=== PATIENT | female | born 1950 | race Caucasian/White ===

== ENCOUNTER 2016-10-13 14:04 | Emergency (ER) | payer MEDICARE ==
[~2016-10-13] VITALS: Ht 167.6 cm; Wt 59.0 kg
[2016-10-13] MEDS: Ketorolac 30mg Inj IV ONE ×2 (14:45→14:56)
[2016-10-13 14:51] LABS: BASOPHILS % (AUTO) 0.7 % (0.0-2.0); LYMPHOCYTES % (AUTO) 30.1 % (20.0-45.0); MEAN CORPUSCULAR HEMOGLOBIN 30.7 PG (27.0-31.0); MEAN CORPUSCULAR HGB CONC 33.3 G/DL (32.0-36.0); MEAN CORPUSCULAR VOLUME 92 FL (80-99); MEAN PLATELET VOLUME 5.1 FL (6.5-10.1); MONOCYTES % (AUTO) 10.1 % (1.0-10.0); NEUTROPHILS % (AUTO) 58.2 % (45.0-75.0); PLATELET COUNT 337 K/UL (150-450); RED BLOOD COUNT 4.83 M/UL (4.20-5.40); RED CELL DISTRIBUTION WIDTH 11.6 % (11.6-14.8); WHITE BLOOD COUNT 7.4 K/UL (4.8-10.8)
--- NOTE | 2016-10-13 14:52 | Emergency Room Report ---
History of Present Illness General Chief Complaint: General Complaint Source: Patient Present Illness HPI [id number] with 8 hours of left jaw tightness, nausea, dizziness; jaw pain progressively improving with speaking, "Stretching" it, associated with pain down left arm and right lower back pain. Also associated with acid/burning mid-sternum. Took Prevacid last night. History of GERD. All symptoms started upon waking at 8am, 7 hours prior to ED arrival. No assoc chest pain, SOB, fever/chills, urinary complaints. Denies recent heavy lifting, back strain. History of lower back "disc problems. " History of previous TIAs - states this doesnt feel like "my TIAs." Is on ASA s/p TIA Has had "many MRIs" but was "never told results." Has Neurologist. Patient came by EMS from doctor's office. 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 Pertinent Family History: none Social History: Denies: alcohol use, drug use, smoking Now: No Immunizations: UTD Reviewed Nursing Documentation: PMH: Agreed, PSxH: Agreed Nursing Documentation-PMH Hx Cardiac Problems: No Hx Pacemaker: No Hx Asthma: No Hx COPD: No Review of Systems All Other Systems: negative except mentioned in HPI Physical Exam Vital Signs Date Time Temp Pulse Resp B/P Pulse Ox O2 Delivery O2 Flow Rate FiO2 10/13/16 14:02 97.9 78 16 130/80 99 Room Air Sp02 EP Interpretation: reviewed, normal General Appearance: normal inspection, well appearing, no apparent distress, alert, GCS 15, non-toxic Head: normocephalic, atraumatic Eyes: bilateral eye EOMI, bilateral eye PERRL ENT: normal ENT inspection, hearing grossly normal, normal voice Neck: normal inspection, full range of motion, supple, no bony tend Respiratory: normal inspection, lungs clear, normal breath sounds, no respiratory distress, no retraction, no wheezing Cardiovascular #1: regular rate, rhythm, no edema Gastrointestinal: normal inspection, normal bowel sounds, non tender, soft, no guarding, no hernia Genitourinary: normal inspection, CVA tenderness (R) Musculoskeletal: normal inspection, back normal, normal range of motion, Kirk' s Sign negative Neurologic: normal inspection, alert, oriented x3, responsive, sky line yarder III-XII nml as tested, motor strength/tone normal, normal gait, speech normal Psychiatric: normal inspection, judgement/insight normal, mood/affect normal Skin: normal inspection, normal color, no rash Medical Decision Making Diagnostic Impression: Primary Impression: Jaw pain Additional Impression: Right low back pain Qualified Codes: M54.5 - Low back pain ER Course Jaw pain, dyspepsia - VSS. Afebrile. - Likely GERD - ECG shows TWI from PMD office and also from here. No ischemia - Troponin 0. - UA negative for UTI/pyelo so unlikely cause of right flank pain - At this time, 7 hours after onset, unlikely ACS with 1 negative troponin - Patient refused IV Toradol, PO Valium for right back pain, left jaw tightness - Was given IV pepcid with improvement in symptoms - Given history of low back pain/diskectomy, pain worse with movement, pain started in morning, likely MSK in nature. DC with PMD followup Given copy of labs for PMD followup DC home EKG Diagnostic Results Rate: normal Rhythm: NSR ST Segments: other - TWI in V1-3, Lead 3 ASA given to the pt in ED: No - Took earlier Rhythm Strip Diag. Results EP Interpretation: yes Rate: 85 Rhythm: NSR, no PVC's, no ectopy Chest X-Ray Diagnostic Results Chest X-Ray Diagnostic Results : Chest X-Ray Ordered: Yes # of Views/Limited/Complete: 1 View Indication: Chest Pain EP Interpretation: Yes Interpretation: no consolidation, no effusion, no pneumothorax, no acute cardiopulmonary disease Impression: No acute disease Interpreting ER Provider: Eelctronically signed by Dr Rouse Last Vital Signs Date Time Temp Pulse Resp B/P Pulse Ox O2 Delivery O2 Flow Rate FiO2 10/13/16 14:02 97.9 78 16 130/80 99 Room Air Status: improved PATRIZIA ROUSE M.D. Oct 13, 2016 14:52
[2016-10-13 15:05] LABS: TROPONIN I < 0.30 ng/mL (<=0.30)
[2016-10-13 15:08] LABS: ALANINE AMINOTRANSFERASE 34 U/L (3-33); ALBUMIN/GLOBULIN RATIO 1.5 (1.0-2.7); ANION GAP 11 (5-15); ASPARTATE AMINO TRANSFERASE 27 U/L (5-40); CALCIUM 9.8 mg/dL (8.6-10.2); CARBON DIOXIDE 28 mEQ/L (20-30); CHLORIDE 98 mEQ/L (98-107); CREATININE 0.7 mg/dL (0.5-0.9); GLOMERULAR FILTRATION RATE > 60 mL/min (>60); HEMOLYSIS 5; POTASSIUM 3.4 mEQ/L (3.4-4.9); SODIUM 137 mEQ/L (135-145)
[2016-10-13 15:18] LABS: CKMB 1.7 ng/mL (< 3.8)
[2016-10-13] MEDS ORDERED: Famotidine 20 MG/ 2ML VIAL IVP ONE (15:30)
[2016-10-13 15:57] LABS: APPEARANCE,URINE CLEAR; KETONES,URINE NEGATIVE (NEGATIVE); LEUKOCYTE ESTERASE ,URINE 1+ (NEGATIVE); NITRITE,URINE NEGATIVE (NEGATIVE); PH,URINE 7 (4.5-8.0); PROTEIN,URINE NEGATIVE (NEGATIVE); UROBILINOGEN,URINE NORMAL MG/DL (0.0-1.0)
[2016-10-13 16:08] LABS: RBC,URINE 0-2 /HPF (0 - 2)
[2016-10-13 16:09] LABS: MUCUS,URINE MODERATE /LPF (NONE/OCC); SQUAMOUS EPITHELIAL CELL,UR OCCASIONAL /LPF (NONE/OCC); WBC,URINE 0-2 /HPF (0 - 2)
[2016-10-13 16:22] VITALS: BP 127/78
[2016-10-13 16:23] VITALS: BP 130/80
--- NOTE | 2016-10-16 08:39 | Diagnostic Imaging Report ---
Indication: Chest pain Technique: AP chest Comparison: None Findings: Cardiac silhouette is prominent. Aorta is tortuous. There is no consolidation or pleural effusion. Degenerative changes of the spine are seen. Impression: No acute cardiopulmonary disease. Cardiomegaly.
== END 2016-10-13 16:24 | disposition home or self-care (01) ==
LOC: EDBD 14:04 → EMR 14:41
DX: R68.84 Jaw pain (principal); M54.5 Low back pain; R11.0 Nausea; R42 Dizziness and giddiness; K21.9 Gastro-esophageal reflux disease without esophagitis; Z86.73 Personal history of transient ischemic attack (TIA), and cerebral infarction without residual deficits; I10 Essential (primary) hypertension; Z89.429 Acquired absence of other toe(s), unspecified side; I51.7 Cardiomegaly
CPT/HCPCS: 36415; 71010; 80053; 81003; 82550; 82553; 84484; 85025; 93005; 96374; 99284; S0028